=== PATIENT | male | born 2005 | race Caucasian/White ===

== ENCOUNTER 2024-02-28 10:42 | Emergency (ER) | payer BC, OTHER ==
--- NOTE | 2024-02-28 11:23 | ED ---
Headache HPI - General Chief Complaint: Headache Stated Complaint: Headache, cough Time Seen by Provider: 02/28/24 11:15 Source: patient, RN notes reviewed Mode of arrival: ambulatory Limitations: no limitations - History of Present Illness Initial Comments: This is a 18-year-old male who presents to the emergency department for headaches, nausea/vomiting, coughing, and chills. Symptoms started about 3 days ago. He last threw up 2 days ago, but states that he still feels nauseous. Currently has a headache and a cough. The cough is described as wet. Denies any chest pain or shortness of breath. He was around someone who tested positive for influenza B. Denies any history of asthma. Patient later brought up that he was having lower back pain after lifting weights a couple of days ago. Denies any loss of bowel/bladder control or saddle anesthesia. MD Complaint: headache - Related Data Home Medications Medication Instructions Recorded Confirmed Lisdexamfetamine Dimesylate 30 mg PO DAILY 12/24/15 12/24/15 [Vyvanse] Previous Rx's Medication Instructions Recorded Ondansetron Odt [Zofran ODT] 4 mg PO Q8HR PRN #20 tab 12/24/15 Benzonatate [Tessalon Perle] 200 mg PO TID PRN #20 capsule 02/28/24 Ibuprofen [Motrin] 800 mg PO Q8H PRN #30 tab 02/28/24 Lidocaine 5% Patch [Lidoderm 5% 1 patch TOPICAL DAILY PRN #30 patch 02/28/24 Patch] Ondansetron Odt [Zofran Odt] 4 mg PO Q8HR PRN #15 tab 02/28/24 Allergies Allergy/AdvReac Type Severity Reaction Status Date / Time No Known Allergies Allergy Verified 02/28/24 11:14 Review of Systems ROS Statement: Those systems with pertinent positive or pertinent negative responses have been documented in the HPI. ROS Other: All systems not noted in ROS Statement are negative. Past Medical History Past Medical History: No Reported History History of Any Multi-Drug Resistant Organisms: None Reported Past Surgical History: No Surgical Hx Reported Past Psychological History: Anxiety Past Alcohol Use History: None Reported Past Drug Use History: Marijuana General Exam Limitations: no limitations General appearance: alert, in no apparent distress Head exam: Present: atraumatic, normocephalic, normal inspection Respiratory exam: Present: normal lung sounds bilaterally. Absent: respiratory distress, wheezes, rales, rhonchi, stridor Cardiovascular Exam: Present: regular rate, normal rhythm, normal heart sounds. Absent: systolic murmur, diastolic murmur, rubs, gallop, clicks Back exam: Present: tenderness (Lower lumbar spine) Neurological exam: Present: alert, oriented X3, CN II-XII intact Psychiatric exam: Present: normal affect, normal mood Skin exam: Present: warm, dry, intact, normal color. Absent: rash Course Vital Signs 02/28/24 02/28/24 02/28/24 11:11 11:48 12:10 Temperature 103.0 F H 101 F H Pulse Rate 123 H Respiratory 18 18 Rate Blood Pressure 155/88 O2 Sat by Pulse 97 Oximetry 02/28/24 12:45 Temperature 100 F H Pulse Rate 101 H Respiratory 18 Rate Blood Pressure 145/81 O2 Sat by Pulse 97 Oximetry Medical Decision Making - Medical Decision Making This is a 18 year old male who presents to the emergency department for a headache, coughing, and nausea. Was pt. sent in by a medical professional or institution? @ -No Did you speak to anyone other than the patient for history? @ -No Did you review nursing and triage notes? @ -Yes, and I agree, it is accurate with regards to the patient's symptoms. Were old charts reviewed? @ -No Differential Diagnosis? @ -Differential Headache: Migraine, tension, cluster, carbon monoxide, central venous thrombosis, pension karma temporal arteritis, acute closure glaucoma, intercranial hemorrhage, mastoiditis, sinusitis, head injury, this is not meant to be an all-inclusive list. EKG interpreted by me (3pts min.)? @ -Not obtained X-rays interpreted by me (1pt min.)? @ -Chest x-ray obtained, my interpretation identifies no localized consolidations or infiltrates. CT interpreted by me (1pt min.)? @ -Not obtained U/S interpreted by me (1pt. min.)? @ -Not obtained What testing was considered but not performed? (CT, X-rays, U/S, labs)? Why? @ -None What meds were considered but not given? Why? @ -None Did you discuss the management of the patient with other professionals? @ -No Did you reconcile home meds? @ -No Was smoking cessation discussed for >3mins.? @ -No Was critical care preformed (if so, how long)? @ -No Were there social determinants of health that impacted care today? How? (Homelessness, low income, unemployed, alcoholism, drug addiction, transportation, low edu. Level, literacy, decrease access to med. care, care home, rehab)? @ -No Was there de-escalation of care discussed even if they declined? (Discuss DNR or withdrawal of care, Hospice)? @ -No What co-morbidities impacted this encounter? (DM, HTN, Smoking, COPD, CAD, Cancer, CVA, Hep., AIDS, mental health diagnosis, sleep apnea, morbid obesity)? @ -None Was patient admitted / discharged? @ -Discharged. Patient was febrile on arrival with temperature of 103 F. Temperature treated with Tylenol and Toradol, which also helped with the headache. Patient positive for influenza B. Chest x-ray suggestive of bronchitis. Tessalon Perles and Zofran administered as well for additional symptomatic management, which the patient felt was beneficial. Lidocaine patch applied to the lower back for lumbar strain. Prescription for ibuprofen, Tessalon Perles, Zofran, and lidocaine patches provided with dosing instructions reviewed. Patient discharged home in stable condition. Advised getting plenty of rest and drinking plenty of fluids. Undiagnosed new problem with uncertain prognosis? @ -None Drug Therapy requiring intensive monitoring for toxicity (Heparin, Nitro, Insulin, Cardizem)? @ -None Were any procedures done? @ -None Diagnosis/symptom? @ -Influenza B, headache, low back strain Acute, or Chronic, or Acute on Chronic? @ -Acute Uncomplicated (without systemic symptoms) or Complicated (systemic symptoms)? @ -Uncomplicated Side effects of treatment? @ -None Exacerbation, Progression, or Severe Exacerbation] @ -Not applicable Poses a threat to life or bodily function? @ -No Return precautions reviewed in depth, the patient is instructed to return to the emergency department with any new, worsening, or concerning symptoms. Patient verbalized understanding. This case was discussed in detail with the attending ED physician, Dr. Seay. Presentation, findings, and treatment plan discussed in detail as well. - Lab Data Lab Results 02/28/24 Range/Units 11:26 Influenza Type A (PCR) Not Detected (Not Detectd) Influenza Type B (PCR) Detected A (Not Detectd) RSV (PCR) Not Detected (Not Detectd) SARS-CoV-2 (PCR) Not Detected (Not Detectd) - Radiology Data Radiology results: report reviewed, image reviewed Disposition Clinical Impression: Influenza B, Headache, Low back strain Disposition: HOME SELF-CARE Instructions (If sedation given, give patient instructions): Influenza (ED), Acute Headache (ED) Additional Instructions: Return to the emergency department with any new, worsening, or concerning symptoms. Alternate with ibuprofen and Tylenol as needed for any additional headaches or fevers. You can take the Tessalon Perles up to every 8 hours as needed for coughing. You can apply the lidocaine patches to the lower back daily for pain relief. You can also also take the Zofran up to every 8 hours as needed for nausea and vomiting. Make sure you remain well-hydrated and get plenty of rest. Follow up with your primary care provider in 1-2 days. Prescriptions: Lidocaine 5% Patch [Lidoderm 5% Patch] 1 patch TOPICAL DAILY PRN #30 patch PRN Reason: Pain Ibuprofen [Motrin] 800 mg PO Q8H PRN #30 tab PRN Reason: Pain Benzonatate [Tessalon Perle] 200 mg PO TID PRN #20 capsule PRN Reason: Cough Ondansetron Odt [Zofran Odt] 4 mg PO Q8HR PRN #15 tab PRN Reason: Nausea And Vomiting Is patient prescribed a controlled substance at d/c from ED?: No Referrals: None,Stated [Primary Care Provider] - 1-2 days Time of Disposition: 12:34
[2024-02-28] MEDS: DEXAMETHASONE SOD PHOSPHATE 10 MG/ML 1 ML VIAL IM STA (11:42)
[2024-02-28] MEDS: KETOROLAC 15 MG/ML 1 ML VIAL IM STA (11:42)
[2024-02-28] MEDS: BENZONATATE 100 MG CAP PO STA (11:43)
[2024-02-28] MEDS: ACETAMINOPHEN TAB 500 MG TAB PO STA (11:43)
[2024-02-28] MEDS: ONDANSETRON ODT 4 MG TAB PO STA (11:43)
[2024-02-28 11:49] VITALS: RESP 18
[2024-02-28] MEDS: LIDOCAINE 4% PATCH TOPICAL ONE (12:07)
--- NOTE | 2024-02-28 12:11 | XR ---
EXAMINATION TYPE: XR chest 2V DATE OF EXAM: 02/28/2024 COMPARISON: 09/24/2009 TECHNIQUE: PA and lateral views submitted. HISTORY: Cough FINDINGS: The lungs are clear and there is no pneumothorax, pleural effusion, or focal pneumonia. Heart size normal and no overt failure. Osseous structures intact. There is mild coarsening of the central inter stitium.. IMPRESSION: 1. Correlate for mild bronchitis or mild interstitial pneumonitis..
[2024-02-28 13:09] VITALS: BP 145/81; PULSE 101; TEMP 100
== END 2024-02-28 12:45 | disposition home or self-care (01) ==
LOC: EC 10:42
DX: S39.012A Strain of muscle, fascia and tendon of lower back, initial encounter (principal); J10.1 Influenza due to other identified influenza virus with other respiratory manifestations; X50.0XXA Overexertion from strenuous movement or load, initial encounter
CPT/HCPCS: 99284; 96372 ×2; 87636; 71046; J1100; J1885